=== PATIENT | male | born 1965 | race Caucasian/White ===

== ENCOUNTER → 2016-04-24 | Outpatient (CLI) | payer MEDICARE, BC ==
[2016-04-24 13:40] LABS: CHLORIDE,CL 109 mmol/L (98-110); SODIUM,NA 137 mmol/L (136-146)
== END ==
LOC: MW.LAB 11:18
PROVIDERS: ATTEND Internal Medicine
DX: Z48.22 Encounter for aftercare following kidney transplant (principal); Z94.0 Kidney transplant status; Z79.899 Other long term (current) drug therapy
CPT/HCPCS: 36415; 80053; 80061; 80197; 83735; 84100; 85027; 87799

== ENCOUNTER → 2016-05-01 | Outpatient (CLI) | payer MEDICARE, BC ==
[2016-05-01 10:28] LABS: CHLORIDE,CL 109 mmol/L (98-110); SODIUM,NA 137 mmol/L (136-146)
== END | disposition home or self-care (01) ==
LOC: MW.LAB 09:32
PROVIDERS: ATTEND Internal Medicine
DX: Z79.899 Other long term (current) drug therapy (principal); Z94.0 Kidney transplant status
CPT/HCPCS: 36415; 80053; 80061; 80197; 83735; 84100; 85025; 87799

== ENCOUNTER → 2016-05-08 | Outpatient (CLI) | payer MEDICARE, BC ==
[2016-05-08 10:01] LABS: CHLORIDE,CL 109 mmol/L (98-110); SODIUM,NA 137 mmol/L (136-146)
== END | disposition home or self-care (01) ==
LOC: MW.LAB 08:57
PROVIDERS: ATTEND Internal Medicine
DX: Z48.22 Encounter for aftercare following kidney transplant (principal); Z94.0 Kidney transplant status; Z79.899 Other long term (current) drug therapy
CPT/HCPCS: 36415; 80053; 80061; 80197; 83735; 84100; 85025; 87799

== ENCOUNTER → 2016-05-15 | Outpatient (CLI) | payer MEDICARE, BC ==
[2016-05-15 10:37] LABS: CHLORIDE,CL 110 mmol/L (98-110); SODIUM,NA 137 mmol/L (136-146)
== END ==
LOC: MW.LAB 09:01
PROVIDERS: ATTEND Internal Medicine
DX: Z79.899 Other long term (current) drug therapy (principal); Z94.0 Kidney transplant status
CPT/HCPCS: 36415; 80053; 80061; 80197; 83735; 84100; 85025; 87799

== ENCOUNTER → 2016-05-22 | Outpatient (CLI) | payer MEDICARE, BC ==
[2016-05-22 10:20] LABS: CHLORIDE,CL 110 mmol/L (98-110); SODIUM,NA 137 mmol/L (136-146)
== END | disposition home or self-care (01) ==
LOC: MW.LAB 08:35
PROVIDERS: ATTEND Internal Medicine
DX: Z94.0 Kidney transplant status (principal); Z79.899 Other long term (current) drug therapy
CPT/HCPCS: 36415; 80053; 80061; 80197; 83735; 84100; 85025; 87799

== ENCOUNTER → 2016-06-26 | Outpatient (CLI) | payer MEDICARE, BC ==
[2016-06-26 09:44] LABS: CHLORIDE,CL 107 mmol/L (98-110); SODIUM,NA 136 mmol/L (136-146)
== END ==
LOC: MW.LAB 08:50
PROVIDERS: ATTEND Internal Medicine
DX: Z94.0 Kidney transplant status (principal); Z79.899 Other long term (current) drug therapy
CPT/HCPCS: 36415; 80053; 80061; 80197; 83735; 84100; 85025; 87799

== ENCOUNTER 2018-03-30 20:18 | Emergency (ER) | payer MEDICARE, BC ==
[2018-03-30] MEDS ORDERED: Sodium Chloride 0.9% 1,000 ML IV ONE ×2 (20:22→21:44)
[2018-03-30] MEDS ORDERED: Ondansetron 4 MG/2 ML SDV IVPUSH ONE (20:22)
--- NOTE | 2018-03-30 20:30 | EDM.PDOC ---
<Brandin Kc - Last Filed: 03/31/18 00:03> ED HPI GENERAL MEDICAL PROBLEM - General Chief Complaint: Gastrointestinal Problem Stated Complaint: PT VOMITING Time Seen by Provider: 03/30/18 20:21 - History of Present Illness INITIAL COMMENTS - FREE TEXT/NARRATIVE: I've seen and examined the patient He symptomatically improved he has provided a stool sample as Campylobacter positive I did offer admission to the patient and he refused at this time he would like to go home and continue hydration on his own as he is able to keep water down with the Zofran HEENT moist mucosa otherwise grossly within normal limits Chest clear throughout CV regular rate and rhythm Abdomen benign Extremities full range of motion strength 5 out of 5 no edema CLASSROOM AIDE alert nonfocal Diagnostics As above Therapeutics As above Discharged on azithromycin 500 mg by mouth daily no refill-patient placed on azithromycin rather than Cipro due to renal transplant history and creatinine 1.3 Zofran Return if symptoms persist or worsen or if new concerning symptoms develop Follow-up in 24-48 hours with primary or return to emergency ro symptoms persist or worsen or if new concerning symptoms develop patient is agreeable to this plan and voices understanding Impression Gastroenteritis-Campylobacter positive Chronic history at baseline Definitive disposition and diagnosis as appropriate pending reevaluation and review of above - Related Data Allergies Allergy/AdvReac Type Severity Reaction Status Date / Time Penicillins Allergy Unknown Hives Verified 03/30/18 20:34 Home Meds: Home Meds NIFEdipine [Nifedipine ER] 60 mg PO BID 11/25/13 [History] LORazepam 2 mg PO BEDTIME 11/08/15 [History] Lisinopril 20 mg PO DAILY 12/27/17 [History] Mycophenolate Mofetil [Cellcept] 750 mg PO BID 12/27/17 [History] Pantoprazole Sodium [Protonix] 1 tab PO DAILY 12/27/17 [History] Sertraline [Zoloft] 50 mg PO DAILY 12/27/17 [History] Tacrolimus [Prograf] 1 mg PO BID 12/27/17 [History] atorvaSTATin Calcium [Lipitor] 1 tab PO BEDTIME 12/27/17 [History] prednisoLONE [Millipred] 1 tab PO DAILY 12/27/17 [History] ED ROS GENERAL - Review of Systems Review Of Systems: See Below ED EXAM, GI/ABD - Physical Exam Exam: See Below Course - Vital Signs Last Recorded V/S: Last Vital Signs Temp 98.5 F 03/31/18 00:32 Pulse 88 03/31/18 00:32 Resp 18 03/31/18 00:32 BP 145/77 H 03/31/18 00:32 Pulse Ox 95 03/31/18 00:32 Orthostatic Blood Pressure [ 140/77 Standing] Orthostatic Blood Pressure [ 126/69 Sitting] Orthostatic Blood Pressure [ 144/80 Supine] - Orders/Labs/Meds Orders: Active Orders 24 hr Category Date Time Status EKG Documentation Completion [RC] STAT Care 03/30/18 20:34 Active Orthostatic Vital Signs [RC] ASDIRECTED Care 03/30/18 20:34 Active CULTURE BLOOD [BC] Stat Lab 03/30/18 21:58 Received CULTURE BLOOD [BC] Stat Lab 03/30/18 22:04 Results CULTURE STOOL + CAMPY+SHIGATOX [RM] Stat Lab 03/30/18 22:55 Results OVA & PARASITES BY IMMUNOASSAY [MREF] Stat Lab 03/30/18 22:55 Received Blood Culture x2 Reflex Set [OM.PC] Stat Oth 03/30/18 20:59 Ordered Labs: Laboratory Tests 03/30/18 03/30/18 03/30/18 Range/Units 20:34 20:34 22:55 WBC 17.04 H (4.0-11.0) K/uL RBC 5.73 (4.50-5.90) M/uL Hgb 18.2 H (13.0-17.0) g/dL Hct 52.9 H (38.0-50.0) % MCV 92.3 (80.0-98.0) fL MCH 31.8 (27.0-32.0) pg MCHC 34.4 (31.0-37.0) g/dL RDW Std Deviation 43.5 (28.0-62.0) fl RDW Coeff of Mickey 13 (11.0-15.0) % Plt Count 190 (150-400) K/uL MPV 10.50 (7.40-12.00) fL Neut % (Auto) 91.2 H (48.0-80.0) % Lymph % (Auto) 3.6 L (16.0-40.0) % Taliaferro % (Auto) 4.8 (0.0-15.0) % Eos % (Auto) 0.2 (0.0-7.0) % Baso % (Auto) 0.2 (0.0-1.5) % Neut # (Auto) 15.5 H (1.4-5.7) K/uL Lymph # (Auto) 0.6 (0.6-2.4) K/uL Taliaferro # (Auto) 0.8 (0.0-0.8) K/uL Eos # (Auto) 0.0 (0.0-0.7) K/uL Baso # (Auto) 0.0 (0.0-0.1) K/uL Nucleated RBC % 0.0 /100WBC Nucleated RBCs # 0 K/uL Sodium 136 (136-148) mmol/L Potassium 4.6 (3.5-5.1) mmol/L Chloride 104 (98-107) mmol/L Carbon Dioxide 18.8 L (21.0-32.0) mmol/L BUN 21 H (7.0-18.0) mg/dL Creatinine 1.3 (0.8-1.3) mg/dL Est Cr Clr Drug Dosing 62.85 mL/min Estimated GFR (MDRD) 57.5 ml/min Glucose 154 H (74-106) mg/dL Calcium 11.8 H (8.5-10.1) mg/dL Total Bilirubin 0.7 (0.2-1.0) mg/dL AST 26 (15-37) IU/L ALT 37 (14-63) IU/L Alkaline Phosphatase 103 (46-116) U/L Total Protein 8.2 (6.4-8.2) g/dL Albumin 4.9 (3.4-5.0) g/dL Globulin 3.3 (2.6-4.0) g/dL Albumin/Globulin Ratio 1.5 (0.9-1.6) Amylase 63 (25-115) U/L Lipase 170 (73-393) U/L Urine Color YELLOW Urine Appearance SLT CLOUDY Urine pH 5.5 (5.0-8.0) Ur Specific Alder 1.025 (1.001-1.035) Urine Protein TRACE H (NEGATIVE) mg/dL Urine Glucose (UA) NEGATIVE (NEGATIVE) mg/dL Urine Ketones 15 H (NEGATIVE) mg/dL Urine Occult Blood MODERATE H (NEGATIVE) Urine Nitrite NEGATIVE (NEGATIVE) Urine Bilirubin NEGATIVE (NEGATIVE) Urine Urobilinogen 0.2 (<2.0) EU/dL Ur Leukocyte Esterase NEGATIVE (NEGATIVE) Urine RBC 2-4 (0-2/HPF) Urine WBC 1-2 (0-5/HPF) Ur Epithelial Cells RARE (NONE-FEW) Urine Bacteria FEW (NEGATIVE) Urine Mucus LIGHT (NONE-MOD) Meds: Medications Discontinued Medications Generic Name Dose Route Start Last Admin Trade Name Ian PRN Reason Stop Dose Admin Sodium Chloride 1,000 mls @ 999 mls/hr 03/30/18 20:22 03/30/18 20:48 Normal Saline IV 03/30/18 21:22 999 mls/hr STAT ONE Administration Sodium Chloride 1,000 mls @ 200 mls/hr 03/30/18 21:44 03/30/18 22:10 Normal Saline IV 03/31/18 02:43 200 mls/hr STAT ONE Administration Ondansetron HCl 4 mg 03/30/18 20:22 03/30/18 20:48 Zofran IVPUSH 03/30/18 20:23 4 mg ONETIME ONE Administration Departure - Departure Time of Disposition: 00:07 Disposition: Home, Self-Care 01 Condition: Good Clinical Impression: Gastroenteritis, Immunosuppressed status, Campylobacter diarrhea - Discharge Information Instructions: Viral Gastroenteritis, Adult, [id number] Referrals: Wade Saez MD [Primary Care Provider] - Forms: ED Department Discharge Additional Instructions: Medication as prescribed Return if symptoms persist or worsen or if new concerning symptoms develop Close follow-up with primary care 24-48 hours, for reevaluation certainly can return to the emergency room as needed as discussed The following information is given to patients seen in the emergency department who are being discharged to home. This information is to outline your options for follow-up care. We provide all patients seen in our emergency department with a follow-up referral. The need for follow-up, as well as the timing and circumstances, are variable depending upon the specifics of your emergency department visit. If you don't have a primary care physician on staff, we will provide you with a referral. We always advise you to contact your personal physician following an emergency department visit to inform them of the circumstance of the visit and for follow-up with them and/or the need for any referrals to a consulting specialist. The emergency department will also refer you to a specialist when appropriate. This referral assures that you have the opportunity for follow-up care with a specialist. All of these measure are taken in an effort to provide you with optimal care, which includes your follow-up. Under all circumstances we always encourage you to contact your private physician who remains a resource for coordinating your care. When calling for follow-up care, please make the office aware that this follow-up is from your recent emergency room visit. If for any reason you are refused follow-up, please contact the [facility] emergency department at and asked to speak to the emergency department charge nurse. - My Orders Last 24 Hours: My Active Orders 03/30/18 20:34 EKG Documentation Completion [RC] STAT Orthostatic Vital Signs [RC] ASDIRECTED 03/30/18 20:59 Blood Culture x2 Reflex Set [OM.PC] Stat 03/30/18 21:58 CULTURE BLOOD [BC] Stat 03/30/18 22:04 CULTURE BLOOD [BC] Stat 03/30/18 22:55 CULTURE STOOL + CAMPY+SHIGATOX [RM] Stat - Assessment/Plan Last 24 Hours: My Active Orders 03/30/18 20:34 EKG Documentation Completion [RC] STAT Orthostatic Vital Signs [RC] ASDIRECTED 03/30/18 20:59 Blood Culture x2 Reflex Set [OM.PC] Stat 03/30/18 21:58 CULTURE BLOOD [BC] Stat 03/30/18 22:04 CULTURE BLOOD [BC] Stat 03/30/18 22:55 CULTURE STOOL + CAMPY+SHIGATOX [RM] Stat <Delfin Ackerman E - Last Filed: 03/31/18 11:05> ED HPI GENERAL MEDICAL PROBLEM - General Source of Information: Reports: Patient History Limitations: Reports: No Limitations - History of Present Illness INITIAL COMMENTS - FREE TEXT/NARRATIVE: HISTORY AND PHYSICAL: History of present illness: Patient is a 53-year-old male who presents to the emergency room today with nausea, vomiting, and diarrhea. Patient states that since this morning even having this going on. He decided to come in when he has realized he has not urinated today with this history kidney issues. Patient states that he has not been able to keep any fluids or food down today. He states his diarrhea is watery without blood, smell or mucus. He states he has been throwing up every 20 -30 minutes with the diarrhea. Patient denies fever, chills, cough, shortness of breath, difficulties breathing , chest pain, abdominal pain, nasal congestion, ear pain, throat pain, or all other GI, , respiratory, or cardiovascular symptoms. 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 Patient does get his tacrolimus levels checked once a month. He states he has never had issues with his levels prior and has another check in 2 weeks. He is status post 2 years kidney transplant without any complications. Review of systems: As per history of present illness and below otherwise all systems reviewed and negative. Past medical history: As per history of present illness and as reviewed below otherwise noncontributory. Surgical history: As per history of present illness and as reviewed below otherwise noncontributory. Social history: See social history for further information Family history: As per history of present illness and as reviewed below otherwise noncontributory. Physical exam: General: Patient is alert, orientated, and in no acute distress. He is lying comfortably on exam table. HEENT: Atraumatic, normocephalic, pupils equal and reactive bilaterally, negative for conjunctival pallor or scleral icterus, mucous membranes dry, TMs normal bilaterally, throat clear, neck supple, nontender, trachea midline. No drooling or trismus noted. No meningeal signs. No hot potato voice noted. Lungs: Clear to auscultation, breath sounds equal bilaterally, chest nontender. Heart: S1S2, regular rate and rhythm without overt murmur but distant heart sounds. Abdomen: Soft, nondistended, nontender. Negative for masses or hepatosplenomegaly. Negative for costovertebral tenderness. Pelvis: Stable nontender. Genitourinary: Deferred. Rectal: Deferred. Skin: Intact, warm, dry. No lesions or rashes noted. Extremities: Atraumatic, moves all per self, negative for cords or calf pain. Neurovascular unremarkable. Neuro: Awake, alert, oriented. Cranial nerves II through XII unremarkable. Cerebellum unremarkable. Motor and sensory unremarkable throughout. Exam nonfocal. Notes: On exam, patient appears dehydrated but comfortable. Denies any abdominal pain. Will do labs and start fluids. While awaiting labs Dr. Kc will resume care of this patient at this time. Diagnostics: cbc, cmp, ekg, ua, stool studies, C.Diff Therapeutics: NS, zofran Impression: Immunosuppressed Dehydration Campylobacter Infection Definitive disposition and diagnosis as appropriate pending reevaluation and review of above. 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, wears glasses, hx of fx nose Cardiovascular History: Reports: Hypertension Respiratory History: Reports: None Gastrointestinal History: Reports: GERD Genitourinary History: Reports: Renal Disease Other Genitourinary History: hx of Buergers Disease, end stage renal disease, on dialysis Musculoskeletal History: Reports: Fracture Other Musculoskeletal History: fx of left wrist, left clavicle, left arm Neurological History: Reports: None Psychiatric History: Reports: Anxiety, Depression Endocrine/Metabolic History: Reports: None Hematologic History: Reports: None Immunologic History: Reports: None Other Immunologic History: kidney transplant Oncologic (Cancer) History: Reports: Basal Cell Carcinoma Dermatologic History: Reports: None - Infectious Disease History Infectious Disease History: Reports: Chicken Pox, Shingles Other Infectious Disease History: childhood - Past Surgical History HEENT Surgical History: Reports: Naso-Sinus Surgery Dermatological Surgical History: Reports: Skin Graft Social & Family History - Family History Family Medical History: Noncontributory - Caffeine Use Caffeine Use: Reports: Coffee Caffeine Use Comment: 2-3 cups/day Course - Vital Signs Last Recorded V/S: Last Vital Signs Temp 98.5 F 03/31/18 00:32 Pulse 88 03/31/18 00:32 Resp 18 03/31/18 00:32 BP 145/77 H 03/31/18 00:32 Pulse Ox 95 03/31/18 00:32 Orthostatic Blood Pressure [ 140/77 Standing] Orthostatic Blood Pressure [ 126/69 Sitting] Orthostatic Blood Pressure [ 144/80 Supine] - Orders/Labs/Meds Labs: Laboratory Tests 03/30/18 03/30/18 03/30/18 Range/Units 20:34 20:34 22:55 WBC 17.04 H (4.0-11.0) K/uL RBC 5.73 (4.50-5.90) M/uL Hgb 18.2 H (13.0-17.0) g/dL Hct 52.9 H (38.0-50.0) % MCV 92.3 (80.0-98.0) fL MCH 31.8 (27.0-32.0) pg MCHC 34.4 (31.0-37.0) g/dL RDW Std Deviation 43.5 (28.0-62.0) fl RDW Coeff of Mickey 13 (11.0-15.0) % Plt Count 190 (150-400) K/uL MPV 10.50 (7.40-12.00) fL Neut % (Auto) 91.2 H (48.0-80.0) % Lymph % (Auto) 3.6 L (16.0-40.0) % Taliaferro % (Auto) 4.8 (0.0-15.0) % Eos % (Auto) 0.2 (0.0-7.0) % Baso % (Auto) 0.2 (0.0-1.5) % Neut # (Auto) 15.5 H (1.4-5.7) K/uL Lymph # (Auto) 0.6 (0.6-2.4) K/uL Taliaferro # (Auto) 0.8 (0.0-0.8) K/uL Eos # (Auto) 0.0 (0.0-0.7) K/uL Baso # (Auto) 0.0 (0.0-0.1) K/uL Nucleated RBC % 0.0 /100WBC Nucleated RBCs # 0 K/uL Sodium 136 (136-148) mmol/L Potassium 4.6 (3.5-5.1) mmol/L Chloride 104 (98-107) mmol/L Carbon Dioxide 18.8 L (21.0-32.0) mmol/L BUN 21 H (7.0-18.0) mg/dL Creatinine 1.3 (0.8-1.3) mg/dL Est Cr Clr Drug Dosing 62.85 mL/min Estimated GFR (MDRD) 57.5 ml/min Glucose 154 H (74-106) mg/dL Calcium 11.8 H (8.5-10.1) mg/dL Total Bilirubin 0.7 (0.2-1.0) mg/dL AST 26 (15-37) IU/L ALT 37 (14-63) IU/L Alkaline Phosphatase 103 (46-116) U/L Total Protein 8.2 (6.4-8.2) g/dL Albumin 4.9 (3.4-5.0) g/dL Globulin 3.3 (2.6-4.0) g/dL Albumin/Globulin Ratio 1.5 (0.9-1.6) Amylase 63 (25-115) U/L Lipase 170 (73-393) U/L Urine Color YELLOW Urine Appearance SLT CLOUDY Urine pH 5.5 (5.0-8.0) Ur Specific Alder 1.025 (1.001-1.035) Urine Protein TRACE H (NEGATIVE) mg/dL Urine Glucose (UA) NEGATIVE (NEGATIVE) mg/dL Urine Ketones 15 H (NEGATIVE) mg/dL Urine Occult Blood MODERATE H (NEGATIVE) Urine Nitrite NEGATIVE (NEGATIVE) Urine Bilirubin NEGATIVE (NEGATIVE) Urine Urobilinogen 0.2 (<2.0) EU/dL Ur Leukocyte Esterase NEGATIVE (NEGATIVE) Urine RBC 2-4 (0-2/HPF) Urine WBC 1-2 (0-5/HPF) Ur Epithelial Cells RARE (NONE-FEW) Urine Bacteria FEW (NEGATIVE) Urine Mucus LIGHT (NONE-MOD)
--- NOTE | 2018-03-30 23:22 | CR ---
INDICATION: Pain. Technique: Two-views. FINDINGS: No subdiaphragmatic free air visible. Bowel gas pattern benign and nonspecific. Multiple metallic surgical clips in the right low abdomen and pelvis. No pathologic calcification. The visualized osseous structures unremarkable. IMPRESSION: No specific abnormality identified. No evidence of bowel obstruction. Postop change right lower abdomen/pelvis. Dictated by Jacob Dawn MD @ Mar 30 2018 11:19PM Signed by Dr. Jacob Dawn @ Mar 30 2018 11:21PM
[2018-03-31 00:48] VITALS: BP 145/77
== END 2018-03-31 00:33 | disposition home or self-care (01) ==
LOC: MW.ED 20:18
DX: A04.5 Campylobacter enteritis (principal); D89.9 Disorder involving the immune mechanism, unspecified; Z88.0 Allergy status to penicillin; Z79.899 Other long term (current) drug therapy
CPT/HCPCS: 36415; 74019; 80053; 81001; 82150; 83690; 85025; 87040; 87046; 87324; 87328; 87329; 87899; 93005; 96361; 96374; 99284; J2405; J7040

== ENCOUNTER 2020-02-09 04:54 | Emergency (ER) | payer OTHER, MEDICARE ==
[2020-02-09] MEDS ORDERED: Sodium Chloride 0.9% 1,000 ML IV ONE (05:51)
--- NOTE | 2020-02-09 05:57 | EDM.PDOC ---
<Anibal Vu - Last Filed: 02/09/20 06:39> ED HPI GENERAL MEDICAL PROBLEM - General Chief Complaint: General Stated Complaint: BLADDER INFECTION, SINUS INFECTION, COVID +, FEVER Time Seen by Provider: 02/09/20 05:02 Source of Information: Reports: Patient History Limitations: Reports: No Limitations - History of Present Illness INITIAL COMMENTS - FREE TEXT/NARRATIVE: Patient is a 54-year-old male with a renal transplant history on the right presents today for not feeling well. Patient states that he was diagnosed with Covid over 10 days ago and at that time his coke burner stopped his immunosuppressants and put him on prednisone. Patient recently restarted his immunosuppressive's but states that he has been having increased runny nose and feeling tired and fatigue. Patient denies any shortness of breath not requiring oxygen denies productive cough denies nausea vomiting. Patient states that he has been tolerating liquids but feels like his urine has been darker in color is made him nervous. Patient denies any abdominal pain or flank pain. - Related Data Allergies Allergy/AdvReac Type Severity Reaction Status Date / Time Penicillins Allergy Unknown Hives Verified 02/09/20 05:17 Home Meds: Home Meds NIFEdipine [Nifedipine ER] 60 mg PO BID 11/25/13 [History] LORazepam 2 mg PO BEDTIME 11/08/15 [History] Lisinopril 20 mg PO DAILY 12/27/17 [History] Pantoprazole Sodium [Protonix] 1 tab PO DAILY 12/27/17 [History] Sertraline [Zoloft] 50 mg PO DAILY 12/27/17 [History] Tacrolimus [Prograf] 1 mg PO BID 12/27/17 [History] atorvaSTATin Calcium [Lipitor] 1 tab PO BEDTIME 12/27/17 [History] mycophenolate mofetiL [Cellcept] 750 mg PO BID 12/27/17 [History] prednisoLONE [Millipred] 1 tab PO DAILY 12/27/17 [History] 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, wears glasses, hx of fx nose Cardiovascular History: Reports: Hypertension Respiratory History: Reports: None Gastrointestinal History: Reports: GERD Genitourinary History: Reports: Renal Disease Other Genitourinary History: kidney transplant Musculoskeletal History: Reports: Fracture Other Musculoskeletal History: fx of left wrist, left clavicle, left arm Neurological History: Reports: None Psychiatric History: Reports: Anxiety, Depression Endocrine/Metabolic History: Reports: None Hematologic History: Reports: None Immunologic History: Reports: None Other Immunologic History: kidney transplant Oncologic (Cancer) History: Reports: Basal Cell Carcinoma Dermatologic History: Reports: None - Infectious Disease History Infectious Disease History: Reports: Chicken Pox, Novel Coronavirus, Shingles Other Infectious Disease History: childhood - Past Surgical History Head Surgeries/Procedures: Reports: None HEENT Surgical History: Reports: Naso-Sinus Surgery Cardiovascular Surgical History: Reports: None Respiratory Surgical History: Reports: None GI Surgical History: Reports: None Male Surgical History: Reports: Vasectomy Musculoskeletal Surgical History: Reports: ORIF Other Musculoskeletal Surgeries/Procedures:: left arm Oncologic Surgical History: Reports: None Dermatological Surgical History: Reports: Skin Graft Social & Family History - Family History Family Medical History: No Pertinent Family History - Tobacco Use Tobacco Use Status *Q: Former Tobacco User Used Tobacco, but Quit: Yes Month/Year Tobacco Last Used: 11/2011 - Caffeine Use Caffeine Use: Reports: Coffee Caffeine Use Comment: 2-3 cups/day - Recreational Drug Use Recreational Drug Use: No ED ROS GENERAL - Review of Systems Review Of Systems: See Below Constitutional: Reports: No Symptoms HEENT: Reports: Rhinitis Respiratory: Reports: No Symptoms Cardiovascular: Reports: No Symptoms Endocrine: Reports: No Symptoms GI/Abdominal: Reports: No Symptoms : Reports: No Symptoms Musculoskeletal: Reports: No Symptoms Skin: Reports: No Symptoms Neurological: Reports: No Symptoms Psychiatric: Reports: No Symptoms Hematologic/Lymphatic: Reports: No Symptoms Immunologic: Reports: No Symptoms ED EXAM, GENERAL - Physical Exam Exam: See Below Exam Limited By: No Limitations General Appearance: Alert, WD/WN, No Apparent Distress Nose: Normal Inspection, Normal Mucosa Head: Atraumatic Respiratory/Chest: No Respiratory Distress, Lungs Clear, Normal Breath Sounds Cardiovascular: Normal Peripheral Pulses, Regular Rate, Rhythm GI/Abdominal: Normal Bowel Sounds, Soft, Non-Tender Back Exam: Normal Inspection Extremities: Normal Inspection Neurological: Alert, Oriented, CN II-XII Intact, Normal Cognition, Normal Gait Course - Re-Assessments/Exams Free Text/Narrative Re-Assessment/Exam: 02/09/20 06:39 Patient's coke burner is Dr. Faye phone number for the 24-hour service his [phone]. Departure - Departure Disposition: Home, Self-Care 01 Clinical Impression: COVID-19 virus infection, S/P kidney transplant Hematuria Qualifiers: Hematuria type: asymptomatic microscopic Qualified Code(s): R31.21 - Asymptomatic microscopic hematuria - Discharge Information Instructions: COVID-19, Hematuria, Adult Referrals: Wade Saez MD [Primary Care Provider] - Forms: ED Department Discharge Additional Instructions: Your urine testing showed that you have blood in the urine. Your renal transplant team at [facility] should follow-up on this. I would like for you to make an appointment to be seen by them in about 1 week. They will likely repeat the urine testing and will determine if you need further work-up such as a cystoscopy, CT scan, or additional testing, or possibly referral to a urologist. You also likely have your kidney function tests repeated at that time. Your transplant team can also let you know when it is time to resume taking your new normal immunosuppressive medications for your kidney transplant. At this point the rest of your lab work and urine testing looks reassuring and your vital signs are reassuring as well. Warning signs to come back to the ER include: Severe pain, trouble breathing, increasing amount of blood in urine, burning or pain with urination, bloody stools, severe abdominal or flank pain, chills, or any other new or concerning symptoms. Please return the emergency department immediately if your symptoms worsen or if you feel worse. Thank you for choosing the [facility] emergency department in [place] for your medical needs today. It was a pleasure caring for you. The following information is given to patients seen in the emergency department who are being discharged. This information is to outline your options for follow-up care. We provide all patients seen in our emergency department with a follow-up referral. The need for follow-up, as well as the timing and circumstances, are variable depending upon the specifics of your emergency department visit. If you don't have a primary care physician on staff, we will provide you with a referral. We always advise you to contact your personal physician following an emergency department visit to inform them of the circumstance of the visit and for follow-up with them and/or the need for any referrals to a consulting specialist. The emergency department will also refer you to a specialist when appropriate. This referral assures that you have the opportunity for follow-up care with a specialist. All of these measure are taken in an effort to provide you with optimal care, which includes your follow-up. Under all circumstances we always encourage you to contact your private physician who remains a resource for coordinating your care. When calling for follow-up care, please make the office aware that this follow-up is from your recent emergency room visit. If for any reason you are refused follow-up, please contact the [facility] Emergency Department at and asked to speak to the emergency department charge nurse. If you do not have a primary care physician that is caring for you, you can contact these clinics below to set up an appointment to establish care: [facility] [address] [place] [id number] [facility] [address] [place] [id number] Sepsis Event Note (ED) - Evaluation Sepsis Screening Result: Possible Sepsis Risk - Assessment/Plan Assessment:: Terence is a 54-year-old male with a history of renal transplant who presents today for runny nose fatigue at the been tested positive for Covid 10 days ago. Patient also reports that his urine is darker in color. Squires is satting well on room air does not seem to be any respiratory distress. Will obtain labs UA and reassess. <Abdirahman Espinosa - Last Filed: 02/09/20 08:13> Course - Vital Signs Text/Narrative:: I assumed care of this patient at [address] Vu. In brief, this is a 54-year-old man status post renal transplant on tacrolimus, CellCept, and prednisone, chronic kidney disease, hyperlipidemia, hypertension presenting with infectious symptoms and concern for dark urine. Patient was diagnosed with COVID-19 infection on 01/29/2020. His immunosuppressant medications were apparently stopped and he is currently only taking prednisone. He was concerned about dark urine and was concerned about a problem with his kidney transplant. At triage she was initially tachycardic to 109, heart rate is now 91. He received 1 L of normal saline. Laboratory studies showed normal cell lines. Metabolic panel shows mild hyponatremia to 134, BUN 22, creatinine is 1.3, which is about baseline compared to March 2018. Calcium is up at 10.4. Other LFTs are within normal limits. Urinalysis shows large occult blood but negative nitrites and negative leukocyte esterase. Patient denies any dysuria or urinary frequency. We did obtain a renal transplant ultrasound, which is normal. No evidence of a mass, obstruction, or perinephric fluid collection. Blood flow was normal. He does complain of some epistaxis at home but is not having any epistaxis here, his nares look clear. I talked about using [id number] nasal saline spray to keep the nasal mucosa moist. I reevaluated the patient he is resting comfortably. I did speak with the [facility] renal transplant team and advised them of the findings including large blood in the urine and the patient's symptoms. I would like for him to follow- up with the transplant team clinic in about a week to have the urinalysis rechecked to make sure that the blood clears and to ensure that his renal function remains at baseline. They were in agreement with this plan. Given essentially negative work-up, patient will be discharged home. He will follow-up with the renal transplant clinic in about 1 week. Needs follow-up for large hematuria noted on urinalysis and needs to have renal function labs rechecked. Plan: Patient is stable to discharge home with outpatient renal transplant clinic follow-up. Strict emergency department return precautions were provided, patient indicated understanding. All questions were answered prior to departure. Discharged in good condition. Last Recorded V/S: Last Vital Signs Temp 36.8 C 02/09/20 07:25 Pulse 91 02/09/20 08:09 Resp 16 02/09/20 08:09 BP 120/80 02/09/20 08:09 Pulse Ox 95 02/09/20 08:09 - Orders/Labs/Meds Labs: Laboratory Tests 02/09/20 02/09/20 02/09/20 Range/Units 05:35 05:35 05:35 WBC 8.84 (4.0-11.0) K/uL RBC 4.65 (4.50-5.90) M/uL Hgb 14.8 (13.0-17.0) g/dL Hct 43.6 (38.0-50.0) % MCV 93.8 (80.0-98.0) fL MCH 31.8 (27.0-32.0) pg MCHC 33.9 (31.0-37.0) g/dL RDW Std Deviation 40.6 (28.0-62.0) fl RDW Coeff of Mickey 12 (11.0-15.0) % Plt Count 220 (150-400) K/uL MPV 10.40 (7.40-12.00) fL Neut % (Auto) 84.7 H (48.0-80.0) % Lymph % (Auto) 6.0 L (16.0-40.0) % [place] % (Auto) 9.2 (0.0-15.0) % Eos % (Auto) 0.1 (0.0-7.0) % Baso % (Auto) 0.0 (0.0-1.5) % Neut # (Auto) 7.5 H (1.4-5.7) K/uL Lymph # (Auto) 0.5 L (0.6-2.4) K/uL [place] # (Auto) 0.8 (0.0-0.8) K/uL Eos # (Auto) 0.0 (0.0-0.7) K/uL Baso # (Auto) 0.0 (0.0-0.1) K/uL Nucleated RBC % 0.0 /100WBC Nucleated RBCs # 0 K/uL Sodium 134 L (136-148) mmol/L Potassium 4.3 (3.5-5.1) mmol/L Chloride 101 (98-107) mmol/L Carbon Dioxide 23.5 (21.0-32.0) mmol/L BUN 22 H (7.0-18.0) mg/dL Creatinine 1.3 (0.8-1.3) mg/dL Est Cr Clr Drug Dosing 62.12 mL/min Estimated GFR (MDRD) 57.3 ml/min Glucose 136 H (74-106) mg/dL Calcium 10.4 H (8.5-10.1) mg/dL Total Bilirubin 0.6 (0.2-1.0) mg/dL AST 33 (15-37) IU/L ALT 51 (14-63) IU/L Alkaline Phosphatase 67 (46-116) U/L Creatine Kinase 54 (26-308) U/L Total Protein 6.9 (6.4-8.2) g/dL Albumin 3.3 L (3.4-5.0) g/dL Globulin 3.6 (2.6-4.0) g/dL Albumin/Globulin Ratio 0.9 (0.9-1.6) Urine Color YELLOW Urine Appearance SLT CLOUDY Urine pH 6.0 (5.0-8.0) Ur Specific [place] 1.025 (1.001-1.035) Urine Protein NEGATIVE (NEGATIVE) mg/dL Urine Glucose (UA) NEGATIVE (NEGATIVE) mg/dL Urine Ketones NEGATIVE (NEGATIVE) mg/dL Urine Occult Blood LARGE H (NEGATIVE) Urine Nitrite NEGATIVE (NEGATIVE) Urine Bilirubin NEGATIVE (NEGATIVE) Urine Urobilinogen 0.2 (<2.0) EU/dL Ur Leukocyte Esterase NEGATIVE (NEGATIVE) Urine RBC 4-7 (0-2/HPF) Urine WBC 0-1 (0-5/HPF) Ur Epithelial Cells RARE (NONE-FEW) Urine Bacteria RARE (NEGATIVE) Meds: Medications Discontinued Medications Generic Name Dose Route Start Last Admin Trade Name Freq PRN Reason Stop Dose Admin Sodium Chloride 1,000 mls @ 1,000 mls/hr 02/09/20 05:51 02/09/20 06:14 Normal Saline IV 02/09/20 06:50 1,000 mls/hr .Bolus ONE Administration Departure - Departure Time of Disposition: 07:58 Condition: Good - Discharge Information *PRESCRIPTION DRUG MONITORING PROGRAM REVIEWED*: Not Applicable *COPY OF PRESCRIPTION DRUG MONITORING REPORT IN PATIENT JIE: Not Applicable Sepsis Event Note (ED) - Focused Exam Vital Signs: Vital Signs Temp Temp Pulse Resp BP Pulse Ox 02/09/20 08:09 91 16 120/80 95 02/09/20 07:25 36.8 C 91 16 120/73 96 02/09/20 05:10 36.6 C 109 H 18 126/85 94 L
[2020-02-09 06:50] LABS: CARBON DIOXIDE,CO2 23.5 mmol/L (21.0-32.0); POTASSIUM,K 4.3 mmol/L (3.5-5.1)
[2020-02-09 07:26] VITALS: PULSE 91
--- NOTE | 2020-02-09 07:34 | US ---
Indication: History of renal transplant. COVID positive Technique: Sonography of the transplanted kidney was performed. Doppler was also performed. Comparison: Portions of a September 03, 2008 examination Findings: Transplant kidney is located in the right lower quadrant. The transplant kidney measures 13.2 x 6.3 x 7.9 centimeters which is normal. Cortical thickness is 1.72 centimeters which is normal. No mass. No obstruction. No Trish nephric collection. The bladder as visualized appears normal. At Doppler, the arterial inflow and venous outflow appear patent. Resistive indices are 0.55, 0.58 in 0.49 in the upper pole, midpole and lower pole arcuate arteries respectively. This is within normal limits. Impression: Normal sonographic evaluation and normal Doppler evaluation of the right lower quadrant transplant kidney Dictated by Dominick Khan MD @ Feb 09 2020 7:29AM Signed by Dr. Dominick Khan @ Feb 09 2020 7:33AM
[2020-02-09 08:10] VITALS: BP 120/80
== END 2020-02-09 08:15 | disposition home or self-care (01) ==
LOC: MW.ED 04:54
DX: U07.1 COVID-19 (principal); R31.21 Asymptomatic microscopic hematuria; I10 Essential (primary) hypertension; K21.9 Gastro-esophageal reflux disease without esophagitis; F41.9 Anxiety disorder, unspecified; F32.9 Major depressive disorder, single episode, unspecified; Z94.0 Kidney transplant status; Z87.891 Personal history of nicotine dependence; Z88.0 Allergy status to penicillin; Z79.899 Other long term (current) drug therapy
CPT/HCPCS: 36415; 76776; 80053; 81001; 82550; 85025; 99284; J7030; 99285

== ENCOUNTER 2021-04-16 12:43 | Emergency (ER) | payer MEDICARE, OTHER ==
[2021-04-16] MEDS ORDERED: Sodium Chloride 0.9% 10 ML Syringe FLUSH PRN (12:54)
[2021-04-16] MEDS ORDERED: Sodium Chloride 0.9% 2.5 ML Syringe FLUSH PRN (12:54)
[2021-04-16 13:32] LABS: CARBON DIOXIDE,CO2 23.8 mmol/L (21.0-32.0); POTASSIUM,K 3.6 mmol/L (3.5-5.1)
[2021-04-16 13:49] VITALS: BP 126/78; PULSE 84
== END 2021-04-16 13:42 | disposition home or self-care (01) ==
LOC: MW.ED 12:43
DX: E83.42 Hypomagnesemia (principal); I10 Essential (primary) hypertension; K21.9 Gastro-esophageal reflux disease without esophagitis; F41.9 Anxiety disorder, unspecified; F32.A Depression, unspecified; Z79.899 Other long term (current) drug therapy; Z88.0 Allergy status to penicillin; Z91.09 Other allergy status, other than to drugs and biological substances; Z90.89 Acquired absence of other organs
CPT/HCPCS: 36415; 80053; 83735; 85025; 93005; 93010; 99283; 99284-25

== ENCOUNTER 2024-01-19 22:28 | Emergency (ER) | payer MEDICARE, BC ==
[2024-01-19 23:02] LABS: HEMATOCRIT 48.7 % (42.0-52.0); HEMOGLOBIN 16.9 g/dL (14.0-18.0); MEAN CORPUSCULAR HEMOGLOBIN 31.4 pg (28.0-32.0); MEAN CORPUSCULAR HGB CONC 34.7 g/dL (32.0-36.0); MEAN CORPUSCULAR VOLUME 90.4 fL (83.0-99.0); MEAN PLATELET VOLUME 10.4 fL (9.4-12.4); PLATELET COUNT,PLT 241 K/uL (150-400); RED BLOOD CELL COUNT 5.39 M/uL (4.52-5.90); WHITE BLOOD CELL COUNT,WBC 14.64 K/uL (3.9-11.3)
[2024-01-19] MEDS: cefTRIAXone 2 GM in Sodium Chloride 0.9% 50 ML IV ONE (23:16)
[2024-01-19 23:23] LABS: ALBUMIN 3.9 g/dL (3.4-5.0); BILIRUBIN TOTAL 0.7 mg/dL (0.2-1.0); CALCIUM 9.9 mg/dL (8.5-10.1); CARBON DIOXIDE,CO2 22.7 mmol/L (21.0-32.0); CREATININE 1.3 mg/dL (0.8-1.3); EST CRCL DRUG DOSING (CG) 57.2 mL/min; PROTEIN TOTAL,TP 7.8 g/dL (6.4-8.2)
[2024-01-19 23:24] LABS: EOSINOPHILS ABSOLUTE MAN 0.15 K/uL (0.00-0.45); EOSINOPHILS PERCENT MAN 1 % (0-6); LYMPHOCYTES ABSOLUTE MAN 1.17 K/uL (1.00-4.80); LYMPHOCYTES PERCENT MAN 8 % (24-44); MONOCYTES ABSOLUTE MAN 1.32 K/uL (0.00-0.80); MONOCYTES PERCENT MAN 9 % (0-8); SEG NEUTROPHILS PERCENT MAN 82 % (41-71)
[2024-01-19 23:28] LABS: LACTIC ACID 1.1 mmol/L (0.4-2.0)
[2024-01-19] MEDS ORDERED: VANCOmycin 1.5 GM/300 ML 300 ML IV ONE (23:30)
[2024-01-20] MEDS: Iopamidol 755 MG/ML 500 ML Multipack Bottle IVPUSH ONE (00:03)
[2024-01-20] MEDS: VANCOmycin 1.5 GM in Sodium Chloride 0.9% 250 ML IV ONE (00:16)
[2024-01-20] MEDS: Lactated Ringers 1,000 ML IV ONE (00:29)
[2024-01-20 02:12] VITALS: BP 144/83; PULSE 89
[2024-01-20] MEDS: Acetaminophen 500 MG Tab PO ONE (02:20)
== END 2024-01-20 02:34 | disposition home or self-care (01) ==
LOC: MW.ED 22:28
DX: L03.114 Cellulitis of left upper limb (principal); K21.9 Gastro-esophageal reflux disease without esophagitis; Z88.0 Allergy status to penicillin; Z91.048 Other nonmedicinal substance allergy status; Z79.899 Other long term (current) drug therapy
CPT/HCPCS: 36415; 73201; 80053; 83605; 85025; 85652; 86140; 87040; 96365; 96366; 96367; 99284; A9270; J0696; J3371; J3490; J7050; J7120; Q9967